=== PATIENT | male | born 1960 | race African-American/Black ===

== ENCOUNTER 2023-09-23 16:35 | Inpatient (IN) | payer OTHER ==
[2023-09-23 16:59] VITALS: BMI 34.9
[2023-09-23 17:58] LABS: BASO % 0.7 % (0-2.0); EOS % 0.4 % (0-4.5); HEMATOCRIT 41.5 % (35.4-49); HEMOGLOBIN 13.6 GM/dL (11.7-16.9); LYMPH % 23.5 % (8-40); MCH 29.1 pg (25.7-33.7); MCHC 32.7 g/dl (32.0-35.9); MEAN CELL VOLUME 88.8 fl (80-96); MEAN PLT VOLUME 9.6 fl (7.5-11.1); MONO % 16.1 % (3.8-10.2); NEUT % 59.3 % (42.8-82.8); PLATELET COUNT 256 10^3/uL (134-434); RBC 4.67 M/mm3 (4.00-5.60); RDW 14.7 % (11.9-15.9)
[2023-09-23 18:05] LABS: INR 1.5 (0.83-1.09); PROTHROMBIN TIME (PATIENT) 17.1 SEC (9.7-13.0)
[2023-09-23 18:07] LABS: ACTIVATED PTT 35.5 SECONDS (25.2-36.5)
[2023-09-23 18:16] LABS: CHLORIDE 104 mmol/L (98-107); POTASSIUM 4.4 mmol/L (3.5-5.1); SODIUM 138 mmol/L (136-145)
[2023-09-23 18:18] LABS: CALCIUM 9.1 mg/dL (8.5-10.1)
[2023-09-23 18:19] LABS: ALBUMIN 3.4 g/dl (3.4-5.0); ANION GAP 11 mmol/L (4-13); BLOOD UREA NITROGEN 34.4 mg/dL (7-18); CO2 24 mmol/L (21-32); GLUCOSE,RANDOM 118 mg/dL (74-106); MAGNESIUM 2.9 mg/dL (1.8-2.4)
[2023-09-23 18:22] LABS: CREATININE 1.7 mg/dL (0.55-1.3); SGOT/AST 32 U/L (15-37); SGPT/ALT 23 U/L (13-61)
[2023-09-23 18:24] LABS: BILIRUBIN,TOTAL 0.8 mg/dL (0.2-1)
[2023-09-23 18:25] LABS: ALK PHOS 99 U/L (45-117); N-TERMINAL BNP 571.7 pg/ml (5-125)
[2023-09-23] MEDS ORDERED: ACETAMINOPHEN INJECTION 100 ML IVPB ONE (20:06)
[2023-09-23] MEDS: ACETAMINOPHEN 1000 MG/100 ML BAG IVPB ONE (20:31)
[2023-09-23 21:08] LABS: POTASSIUM 4.9 mmol/L (3.5-5.1)
[2023-09-23 21:09] LABS: CALCIUM 9.1 mg/dL (8.5-10.1)
[2023-09-23 21:10] LABS: BLOOD UREA NITROGEN 35.1 mg/dL (7-18)
[2023-09-23 21:13] LABS: CREATININE 1.6 mg/dL (0.55-1.3)
[2023-09-24] MEDS ORDERED: APIXABAN 5 MG TABLET ONE ×3 (00:48→10:32)
[2023-09-24] MEDS: APIXABAN 5 MG TABLET PO SCH (00:58)
[2023-09-24] MEDS: traMADol HCL 50 MG TABLET PO ONE (02:02)
[2023-09-24 06:23] LABS: BASO % 0.7 % (0-2.0); EOS % 0.9 % (0-4.5); LYMPH % 31.4 % (8-40); MCH 28.8 pg (25.7-33.7); MCHC 32.6 g/dl (32.0-35.9); MEAN CELL VOLUME 88.3 fl (80-96); MEAN PLT VOLUME 9.7 fl (7.5-11.1); MONO % 15.3 % (3.8-10.2); NEUT % 51.7 % (42.8-82.8); PLATELET COUNT 229 10^3/uL (134-434); RBC 4.53 M/mm3 (4.00-5.60); RDW 14.3 % (11.9-15.9); WHITE BLOOD COUNT 6.7 K/mm3 (4.0-10.0)
[2023-09-24 06:54] LABS: CALCIUM 8.8 mg/dL (8.5-10.1)
[2023-09-24 06:55] LABS: BLOOD UREA NITROGEN 31.5 mg/dL (7-18); MAGNESIUM 2.9 mg/dL (1.8-2.4)
[2023-09-24 06:58] LABS: CREATININE 1.4 mg/dL (0.55-1.3); PHOSPHOROUS 3.9 mg/dL (2.5-4.9)
[2023-09-24 07:00] LABS: CHOLESTEROL 151 mg/dL (50-200)
[2023-09-24] MEDS ORDERED: ACETAMINOPHEN INJECTION 100 ML IVPB ONE (10:16)
[2023-09-24] MEDS: ACETAMINOPHEN 1000 MG/100 ML BAG IVPB ONE (10:30)
[2023-09-24 12:06] LABS: BF WBC & OTHER NUCLEATED CELLS 9596 /mm3
[2023-09-24 12:07] LABS: BODY FLUID MONOCYTE 10 %
[2023-09-24] MEDS ORDERED: ADENOSINE 6 MG/2 ML VIAL IVPUSH ONE ×3 (17:05→17:09)
[2023-09-24] MEDS: ADENOSINE 6 MG/2 ML VIAL IVPUSH ONE (17:28)
[2023-09-24 19:30] VITALS: BP 129/83; PULSE 102; RESP 16; TEMP 99.1
== END 2023-09-24 21:50 | disposition short-term general hospital (02) | DRG 565 ==
LOC: JER 16:35 → JERBED 19:59
PROVIDERS: ADMIT Internal Medicine; ATTEND Family Medicine
PROC: 0S9C3ZZ Drainage of Right Knee Joint, Percutaneous Approach (ICD-10-PCS; principal; 2023-09-24)
PROC: 5A2204Z Restoration of Cardiac Rhythm, Single (ICD-10-PCS; 2023-09-24)
DX: M25.461 Effusion, right knee (principal); I24.89 Other forms of acute ischemic heart disease; I42.8 Other cardiomyopathies; N17.9 Acute kidney failure, unspecified; I47.10 Supraventricular tachycardia, unspecified; I49.3 Ventricular premature depolarization; R26.2 Difficulty in walking, not elsewhere classified; M25.462 Effusion, left knee; Z96.642 Presence of left artificial hip joint
CPT/HCPCS: 0241U-QW; 36415; 71045-TC-FY; 73562-TC-LT-FY; 73562-TC-RT-FY; 80048; 80053; 82465; 82550; 82553; 82962; 83735; 83880; 84100; 84439; 84443; 84484; 85025; 85379; 85610; 85730; 86850; 86900; 86901; 87070; 87075; 87205; 89060; 93005; 93010; 93970-TC; 99285-25; J0131

== ENCOUNTER 2024-04-14 13:11 | Inpatient (IN) | payer OTHER ==
[2024-04-14 13:50] VITALS: BMI 26.3
[2024-04-14] MEDS: ACETAMINOPHEN 1000 MG/100 ML BAG IVPB ONE (14:34)
[2024-04-14 14:37] LABS: BASO % 0.4 % (0-2.0); HEMATOCRIT 36.3 % (35.4-49); HEMOGLOBIN 11.6 GM/dL (11.7-16.9); LYMPH % 14.4 % (8-40); MCH 26.5 pg (25.7-33.7); MEAN CELL VOLUME 82.9 fl (80-96); MEAN PLT VOLUME 8.1 fl (7.5-11.1); MONO % 14.2 % (3.8-10.2); PLATELET COUNT 247 10^3/uL (134-434); RBC 4.38 M/mm3 (4.00-5.60); RDW 16.8 % (11.9-15.9); WHITE BLOOD COUNT 5.9 K/mm3 (4.0-10.0)
[2024-04-14] MEDS ORDERED: ACETAMINOPHEN INJECTION 100 ML ONE (14:37)
[2024-04-14 14:43] LABS: INR 1.57 (0.83-1.09); PROTHROMBIN TIME (PATIENT) 17.5 SEC (9.7-13.0)
[2024-04-14 14:46] LABS: ACTIVATED PTT 35.7 SECONDS (25.2-36.5)
[2024-04-14 15:03] LABS: POTASSIUM 3.9 mmol/L (3.5-5.1)
[2024-04-14 15:05] LABS: CALCIUM 9.4 mg/dL (8.5-10.1)
[2024-04-14 15:06] LABS: ALBUMIN 2.9 g/dl (3.4-5.0); BLOOD UREA NITROGEN 14.4 mg/dL (7-18)
[2024-04-14 15:09] LABS: CREATININE 1.6 mg/dL (0.55-1.3)
[2024-04-14 15:10] LABS: BILIRUBIN,TOTAL 0.9 mg/dL (0.2-1); TOT PROT 7.3 g/dl (6.4-8.2)
[2024-04-14 15:12] LABS: N-TERMINAL BNP 904.2 pg/ml (5-125)
[2024-04-14 15:15] LABS: ERYTHROCYTE SEDIMENTATION RATE 97 mm/hr (0-20)
[2024-04-14 16:57] LABS: EPI CELLS 6 /uL (0-25.1); HYALINE CASTS 2 /uL (0-3.1); PH,URINE 5.5 (5.0-8.0); URINE APPEARANCE CLEAR; URINE BACTERIA 13 /uL (0-1359); URINE BILIRUBIN NEGATIVE (NEGATIVE); URINE COLOR DK YELLOW; URINE GLUCOSE (UA) 3+ (NEGATIVE); URINE KETONE TRACE (NEGATIVE); URINE LEUK ESTERASE NEGATIVE (NEGATIVE); URINE NITRITE NEGATIVE (NEGATIVE); URINE PROTEIN 2+ (NEGATIVE); URINE RBC 9 /uL (0-23.9); URINE WBC 23 /uL (0-25.8)
[2024-04-15 08:53] LABS: BASO % 0.2 % (0-2.0); EOS % 0.9 % (0-4.5); HEMATOCRIT 33.2 % (35.4-49); LYMPH % 36.1 % (8-40); MCH 27.2 pg (25.7-33.7); MCHC 33.2 g/dl (32.0-35.9); MEAN CELL VOLUME 82.2 fl (80-96); NEUT % 43.8 % (42.8-82.8); PLATELET COUNT 228 10^3/uL (134-434); RBC 4.04 M/mm3 (4.00-5.60); RDW 16.7 % (11.9-15.9)
[2024-04-15] MEDS: ACETAMINOPHEN 1000 MG/100 ML BAG IVPB PRN (09:15)
[2024-04-15] MEDS ORDERED: ACETAMINOPHEN INJECTION 100 ML ONE (09:17)
[2024-04-15 09:19] LABS: POTASSIUM 3.8 mmol/L (3.5-5.1)
[2024-04-15 09:34] LABS: ALBUMIN 2.6 g/dl (3.4-5.0)
[2024-04-15 09:38] LABS: CREATININE 1.3 mg/dL (0.55-1.3)
[2024-04-15 09:39] LABS: BILIRUBIN,TOTAL 0.8 mg/dL (0.2-1); CALCIUM 9.3 mg/dL (8.5-10.1); TOT PROT 6.7 g/dl (6.4-8.2)
[2024-04-15] MEDS: ENOXAPARIN NA (PORCINE) 40 MG/0.4 ML DISP.SYRIN SQ SCH (11:38)
[2024-04-15 15:45] LABS: EPI CELLS 3 /uL (0-25.1); HYALINE CASTS 0 /uL (0-3.1); PH,URINE 5.5 (5.0-8.0); URINE APPEARANCE CLEAR; URINE BACTERIA 1 /uL (0-1359); URINE BILIRUBIN NEGATIVE (NEGATIVE); URINE COLOR DK YELLOW; URINE GLUCOSE (UA) 3+ (NEGATIVE); URINE KETONE TRACE (NEGATIVE); URINE LEUK ESTERASE NEGATIVE (NEGATIVE); URINE NITRITE NEGATIVE (NEGATIVE); URINE PROTEIN 2+ (NEGATIVE); URINE RBC 17 /uL (0-23.9); URINE WBC 9 /uL (0-25.8)
[2024-04-15] MEDS: PANTOPRAZOLE SOD 40 MG SUSPENSION PACKET PO SCH (18:03)
[2024-04-15] MEDS: SACUBITRIL/VALSARTAN 49 MG-51 MG TABLET PO SCH (22:45)
[2024-04-15] MEDS: ATORVASTATIN CA 20 MG TABLET (FP) PO SCH (22:45)
[2024-04-16] MEDS: EMPAGLIFLOZIN (JARDIANCE) 10 MG TABLET PO SCH (06:28)
[2024-04-16] MEDS: SPIRONOLACTONE 25 MG TABLET PO SCH (10:25)
[2024-04-16] MEDS ORDERED: METHOCARBAMOL 500 MG TABLET PO PRN (12:29)
[2024-04-16] MEDS: ACETAMINOPHEN 325 MG TABLET (FP) PO PRN (12:49)
[2024-04-16] MEDS: METHOCARBAMOL 500 MG TABLET PO PRN (13:22)
[2024-04-18 14:27] LABS: BF GLUCOSE (CSF ONLY) 66 mg/dL (40-70)
[2024-04-18 14:36] LABS: CSF APPEARANCE CLEAR (CLEAR); CSF COLOR COLORLESS (COLORLESS); CSF WBC 0 mm3 (0-5)
[2024-04-19 07:53] LABS: POTASSIUM 3.6 mmol/L (3.5-5.1)
[2024-04-19 07:58] LABS: ALBUMIN 2.3 g/dl (3.4-5.0); CALCIUM 8.8 mg/dL (8.5-10.1)
[2024-04-19 07:59] LABS: BLOOD UREA NITROGEN 10.5 mg/dL (7-18)
[2024-04-19 08:06] LABS: BILIRUBIN,TOTAL 0.4 mg/dL (0.2-1)
[2024-04-19 14:53] VITALS: BP 108/80; PULSE 92; RESP 18; TEMP 98.4
== END 2024-04-19 14:38 | DRG 74 ==
LOC: JER 13:11 → JERBED 16:44 → OBSVTOIN 22:32 → J4W 04-15 09:54
PROVIDERS: ADMIT Family Medicine; ATTEND Family Medicine
PROC: 009U3ZX Drainage of Spinal Canal, Percutaneous Approach, Diagnostic (ICD-10-PCS; principal; 2024-04-18)
PROC: B01BZZZ Fluoroscopy of Spinal Cord (ICD-10-PCS; 2024-04-18)
DX: M54.10 Radiculopathy, site unspecified (principal); M17.0 Bilateral primary osteoarthritis of knee; M25.461 Effusion, right knee; M25.462 Effusion, left knee; M25.562 Pain in left knee; M25.561 Pain in right knee; R26.2 Difficulty in walking, not elsewhere classified; M54.9 Dorsalgia, unspecified
CPT/HCPCS: 36415; 62272; 71045-TC-FY; 72125-TC; 72128-TC; 72131-TC; 73564-TC-LT-FY; 73564-TC-RT-FY; 76775-TC; 80053; 81003; 82550; 82945; 83880; 84157; 84484; 85025; 85610; 85651; 85730; 86140; 86850; 86900; 86901; 87086; 93005; 93010; 93970-TC; 97116-GP; 97162-GP; 99285-25; G0378; J0131